=== PATIENT | female | born 1995 | race Caucasian/White ===

== ENCOUNTER → 2016-03-28 | Outpatient (CLI) | payer BC ==
[~2016-03-28] MED LIST: CATHETER FLUSH 10 ML SYR IV PRN; CLIN300C11 PO; CULTURELLE CAP1 EACH PO; DESO1TAB38 PO; ESCI10TA48 PO; ESCI5TAB PO; HYDR-3730 PO; HYDR-3812 PO; LACT1CAP8 PO; POLY17PO6 PO
--- OUTSIDE RECORDS SUMMARY | 2016-03-28 11:48 | XMS REPORT | Continuity of Care Document ---
Author Author [facility] Organization [facility] Address Unknown Phone Unavailable Care Team Providers Care Program Coordinator For Residence Life Name Role Phone PCP Unavailable Source Comments Some departments are not documenting in the electronic medical record. If you do not see the information that you expected, contact Release of Information in the Health Information Management department at [phone] for further assistance in locating additional records.[facility] Active Allergies and Adverse Reactions Not on File Current Medications Not on file Active Problems Not on file Social History Tobacco Use Types Packs/Day Years Used Date Never Assessed Plan of Care Date Type Specialty Providers Description 07/29/2016 Appointment Gastroenterology Maulik العلي MD [address] [facility] [address] [place] [address] [phone] (Fax) Results from Last 3 Months Not on file
--- NOTE | 2016-03-28 14:31 | Diagnostic Imaging Report ---
EXAMINATION: HIDA with EF measurements Indication: Abdominal pain TECHNIQUE: After the intravenous administration of 5.3 mCi of Tc 99m Choletec, imaging over the abdomen was obtained. This was followed by administration of Ensure orally to stimulate intrinsic CCK secretion, followed by continued imaging with ejection fraction measured. FINDINGS: There is homogeneous uptake in the liver with prompt bile duct and gallbladder filling seen. Bowel activity is seen at 15 minutes. Based on further imaging and gallbladder area of interest activity measurements after the administration of Ensure, the gallbladder ejection fraction is estimated at 44%. IMPRESSION: 1. Normal hepatobiliary uptake and Gallbladder filling. 2. Borderline gallbladder ejection fraction. Correlate clinically. Dictated by: Dictated on workstation # [id number]
== END ==
LOC: CARD 11:44
PROVIDERS: ATTEND Internal Medicine
DX: R10.11 Right upper quadrant pain (principal)
CPT/HCPCS: 78227

== ENCOUNTER 2016-03-29 11:35 | Outpatient (CLI) | payer BC ==
[~2016-03-29] VITALS: Ht 165.1 cm; Wt 67.7 kg
[~2016-03-29 11:35] MED LIST changes: -CATHETER FLUSH 10 ML SYR IV PRN; -CLIN300C11 PO; -HYDR-3812 PO; -LACT1CAP8 PO; -POLY17PO6 PO
--- OUTSIDE RECORDS SUMMARY | 2016-03-29 11:39 | XMS REPORT | Continuity of Care Document ---
Author Author [facility] Organization [facility] Address Unknown Phone Unavailable Care Team Providers Care Heel Reducer Name Role Phone PCP Unavailable Source Comments Some departments are not documenting in the electronic medical record. If you do not see the information that you expected, contact Release of Information in the Health Information Management department at [phone] for further assistance in locating additional records.[facility] Active Allergies and Adverse Reactions Not on File Current Medications Not on file Active Problems Not on file Social History Tobacco Use Types Packs/Day Years Used Date Never Assessed Plan of Care Date Type Specialty Providers Description 07/29/2016 Appointment Gastroenterology aMulik العلي MD [address] [facility] [address] [place] [address] [phone] (Fax) Results from Last 3 Months Not on file
[2016-03-29] MEDS ORDERED: POLY17PO6 PO (11:45)
[2016-03-29 11:46] VITALS: BP 111/65
[2016-03-29 12:20] LABS: BASOPHILS % (AUTO) 1 % (0-10); EOSINOPHILS # (AUTO) 0.1 10^3/uL (0.0-0.3); EOSINOPHILS % (AUTO) 2 % (0-10); LYMPHOCYTES # (AUTO) 1.8 X 10^3 (1.0-4.0); LYMPHOCYTES % (AUTO) 42 % (12-44); MEAN CORPUSCULAR HEMOGLOBIN 30 PG (25-34); MEAN CORPUSCULAR HGB CONC 34 G/DL (32-36); MEAN CORPUSCULAR VOLUME 88 FL (80-99); MEAN PLATELET VOLUME 9.3 FL (7.4-10.4); MONOCYTES # (AUTO) 0.3 X 10^3 (0.0-1.0); MONOCYTES % (AUTO) 7 % (0-12); NEUTROPHILS % (AUTO) 48 % (42-75); PLATELET COUNT 189 10^3/uL (130-400); RED BLOOD COUNT 4.23 10^6/uL (4.35-5.85); RED CELL DISTRIBUTION WIDTH 11.5 % (10.0-14.5); WHITE BLOOD COUNT 4.3 10^3/uL (4.3-11.0)
[2016-04-01] MEDS ORDERED: HYDR-3730 PO (15:25)
== END 2016-03-29 12:25 | disposition home or self-care (01) ==
LOC: PREOP 11:35
PROVIDERS: ATTEND Surgery Pediatric Surgery
DX: Z01.812 Encounter for preprocedural laboratory examination (principal); Z11.2 Encounter for screening for other bacterial diseases; K82.8 Other specified diseases of gallbladder
CPT/HCPCS: 36415; 85025; 87081

== ENCOUNTER 2016-04-01 11:37 | Day surgery (SDC) | payer BC ==
--- NOTE | 2016-03-30 11:06 | HISTORY AND PHYSICAL ---
DICTATING: Xiang Shepherd, SURVEILLANCE CAMERA TECHNICIAN DATE OF ADMISSION: ATTENDING PHYSICIAN: Dr. Rd Moore Ms. Lorri [id number] female who is known to us. She was initially seen in February 2012 for intermittent episodes of right lower quadrant pain as well as periumbilical pain. She had presented for a CAT scan where this did come back and showed a traditional small bowel bulls-eye target sign consistent with a small intussusception. She then went for a diagnostic laparoscopy where findings were a normal small bowel as well as normal colon. There was also a normal uterus and ovaries, as well as gallbladder and liver. There was however, a slight edema of the appendix, which was then removed. Since that time, the patient has done well. She reports however that approximately one week ago she did develop a sharp right upper quadrant abdominal pain and reports that this did radiate towards her back as well as right shoulder. She reports that she has had episodes of nausea associated with this as well as one episode of vomiting. She reports that she has also had increased episodes of reflux. She reports that Friday evening she felt rather warm and her face was flushed and felt that she was running a fever and reports that she did take some Tylenol. However, reports that this did seem to persist through Friday, but has not recurred since that time. Upon further questioning, she does report that, greasy and fried foods seem to make her right upper quadrant abdominal pain worse. She was seen by her primary care physician where a HIDA scan was performed which did come back as ejection fraction of 44% however, patient reports that she did have a severe reproduction of symptoms during administration of the Kinevac administration. PAST MEDICAL HISTORY: 1. Panic attack. 2. Anxiety. 3. IBS. 4. Gastroesophageal reflux disease. PAST SURGICAL HISTORY: 1. Left upper extremity ORIF x2 to 2011. 2. Diagnostic laparoscopy with laparoscopic appendectomy of February 2014. ALLERGIES: 1. AMOXICILLIN. 2. ZITHROMAX. 3. CEPHALEXIN. 4. BACTRIM. 5. TRIMOX, 6. PSEUDOEPHEDRINE. 7. MUCINEX. 8. SULFAMETHOXAZOLE. . MEDICATIONS: 1. Hydrocodone p.r.n. 2. MiraLAX daily. 3. Oral contraceptive pill a daily. SOCIAL HISTORY: Negative for smoke negative for alcohol. FAMILY HISTORY: Father, diabetes, hypertension. VITAL SIGNS: Stable. REVIEW OF SYSTEMS: This is a well-nourished female in no acute distress. She is not experiencing shortness of breath or difficulty breathing. No chest pain, palpitations, or diaphoresis. She does report intermittent episodes of nausea, as well as one episode of vomiting. She also reports sharp right upper quadrant abdominal pain. She also reports pain in her back as well as right shoulder. She also reports increased episodes of reflux. She reports that she did have a episodes of fever no chills. No recent inadvertent weight loss. She does report IBS and does have alternating episodes of diarrhea and constipation. No red blood per rectum. No dark tarry stools. PHYSICAL EXAM: CHEST: Chest clear. HEART: Heart regular. EXTREMITIES: No lower extremity edema. Negative Homans sign. HEENT: No scleral icterus. No cervical adenopathy or. ABDOMENS: Abdomen is soft and nondistended. There is pain elicited with a moderate palpation in the right upper abdominal quadrant. ASSESSMENT AND PLAN: A 20-year-old female with a symptomatic biliary dyskinesia. She did have a HIDA scan with an ejection fraction of 44%, however, she had a severe reproduction of symptoms during and later that day after the test. At this time due to her symptoms and findings from the HIDA scan. We will proceed with a laparoscopic cholecystectomy. The risk and benefits of the procedure as well as the procedure and home care instructions were explained to the patient. The patient verbalized understanding of instructions and agrees to proceed as planned. At this, time we will proceed with scheduling patient for a laparoscopic cholecystectomy. Job ID: [id number] Dictated Date: 03/29/2016 12:04:20 Manager Gaming Date: 03/30/2016 10:48:51/gemma
[~2016-04-01] VITALS: Ht 165.1 cm; Wt 67.7 kg
[~2016-04-01 11:37] MED LIST changes: +POLY17PO6 PO
--- OUTSIDE RECORDS SUMMARY | 2016-04-01 11:40 | XMS REPORT | Continuity of Care Document ---
Author Author [facility] Organization [facility] Address Unknown Phone Unavailable Care Team Providers Care Expediter Service Order Name Role Phone PCP Unavailable Source Comments Some departments are not documenting in the electronic medical record. If you do not see the information that you expected, contact Release of Information in the Health Information Management department at [phone] for further assistance in locating additional records.[facility] Active Allergies and Adverse Reactions Not on File Current Medications Not on file Active Problems Not on file Social History Tobacco Use Types Packs/Day Years Used Date Never Assessed Plan of Care Date Type Specialty Providers Description 07/29/2016 Appointment Gastroenterology Maulik العلي MD [address] [facility] [address] [place] [address] [phone] (Fax) Results from Last 3 Months Not on file
--- OUTSIDE RECORDS SUMMARY | 2016-04-01 11:40 | XMS REPORT | Continuity of Care Document ---
Author Author [facility] Organization [facility] Address Unknown Phone Unavailable Care Team Providers Care Staff Nuclear Weapons Officer Name Role Phone PCP Unavailable Source Comments Some departments are not documenting in the electronic medical record. If you do not see the information that you expected, contact Release of Information in the Health Information Management department at [phone] for further assistance in locating additional records.[facility] Active Allergies and Adverse Reactions Not on File Current Medications Not on file Active Problems Not on file Social History Tobacco Use Types Packs/Day Years Used Date Never Assessed Plan of Care Date Type Specialty Providers Description 07/29/2016 Appointment Gastroenterology Maulik العلي MD [address] [facility] [address] [place] [address] [phone] (Fax) Results from Last 3 Months Not on file
[2016-04-01] MEDS ORDERED: CATHETER FLUSH 10 ML SYR IV PRN (11:45)
[2016-04-01] MEDS ORDERED: LEVOFLOXACIN 500 MG/D5W 100 ML (PRE-MIX) IV ONE (11:45)
[2016-04-01] MEDS ORDERED: HYDR-3812 PO (12:10)
[2016-04-01] MEDS ORDERED: LIDOCAINE PF 2% 10 ML (XYLOCAINE) AMP ONE (12:44)
[2016-04-01] MEDS ORDERED: SEVOFLURANE (ULTANE) 15 ML INHAL SOLN ONE ×3 (12:44→15:23)
[2016-04-01] MEDS ORDERED: proPOfol 200 MG/20 ML (DIPRIVAN) VIAL IV ONE (12:44)
[2016-04-01] MEDS ORDERED: LACTATED RINGERS 1,000 ML IV ONE ×2 (12:44→15:23)
[2016-04-01] MEDS ORDERED: ONDANSETRON 4 MG/2 ML (SDV) Z0FRAN ONE ×2 (12:44→15:43)
[2016-04-01] MEDS ORDERED: DEXAMETHASONE PF 10 MG/ML (DECADRON) VIAL ONE (12:44)
[2016-04-01] MEDS ORDERED: ROCURONIUM 50 MG/5 ML (ZEMURON) VIAL IV ONE (12:44)
[2016-04-01] MEDS ORDERED: fentaNYL INJECTION 100 MCG/2 ML AMP ONE ×2 (12:45→15:20)
[2016-04-01] MEDS ORDERED: MIDAZOLAM 2 MG/2 ML (VERSED) VIAL ONE (12:45)
--- NOTE | 2016-04-01 13:36 | Progress Note-Pre Operative ---
Pre-Operative Progress Note H&P Reviewed The H&P was reviewed, patient examined and no changes noted. Date H&P Reviewed: Apr 01, 2016 Time H&P Reviewed: 13:33 Pre-Operative Diagnosis: symptomatic biliary dyskinesia OJ RODRIGUEZ MD Apr 01, 2016 1:36 pm
[2016-04-01] MEDS ORDERED: ONDANSETRON 4 MG/2 ML (SDV) Z0FRAN IVP PRN ×2 (13:45→16:00)
[2016-04-01] MEDS ORDERED: ACETAMINOPHEN 325 MG TABLET/CAPLET (TYLENOL) PO PRN (13:45)
[2016-04-01] MEDS ORDERED: HYDROcodone/APAP 5 MG/325 MG (LORTAB) TAB PO ONE (13:45)
[2016-04-01] MEDS ORDERED: morphine INJ 10 MG/ML 1ML (SYR OR VIAL) IVP PRN (13:45)
[2016-04-01] MEDS: LACTATED RINGERS 1,000 ML IV PRN ×2 (13:49→14:52)
[2016-04-01] MEDS ORDERED: MIDAZOLAM 2 MG/2 ML (VERSED) VIAL IV ONE (14:00)
[2016-04-01] MEDS ORDERED: BUP/EPI 0.5% 1:200,000 (SENSORCAINE) 30 ML VIAL ONE (14:04)
[2016-04-01] MEDS ORDERED: NEOSTIGMINE (BLOXIVERZ ) 1 MG/1ML 10 ML VIAL ONE (15:19)
[2016-04-01] MEDS ORDERED: GLYCOPYRROLATE 0.2 MG/ML (ROBINUL) 2 ML VIAL ONE (15:19)
--- NOTE | 2016-04-01 15:23 | Progress Note-Post Operative ---
Post-Operative Progess Note Manager Pipeline jose luis diaz TURBINE MEASUREMENTS ENGINEER Pre-Operative Diagnosis symptomatic biliary dyskinesia Post-Operative Diagnosis same Post-Op Procedure Note Date of Procedure: Apr 01, 2016 Name of Procedure: laparoscopic cholecystectomy Anesthesia Type GET Estimated blood loss (mL): minimal Specimen(s) collected gallbladder OJ RODRIGUEZ MD Apr 01, 2016 3:23 pm
[2016-04-01] MEDS ORDERED: HYDR-3730 PO (15:25)
--- NOTE | 2016-04-01 15:26 | Discharge Inst-Surgical ---
D/C Lap Instructions-JENNIFER New, Converted, or Re-Newed RX: RX on Chart Follow Up Appt in 2 weeks Activity as tolerated No driving for 24 hours No driving while on pain medications Incentive Spirometry use every 2 hours while awake Regular Diet Symptoms to Report: Fever over 101 degree F, Nausea/Vomiting Infection Signs and Symptoms to report: Increased redness, Foul odor of wound, Increased drainage Bathing instructions: May shower Operative Area Clean/Dry; Keep incision clean/dry If any problems/questions: Contact your physician or go to Emergency Room OJ RODRIGUEZ MD Apr 01, 2016 3:26 pm
[2016-04-01] MEDS ORDERED: morphine INJ 10 MG/ML 1ML (SYR OR VIAL) ONE (15:43)
[2016-04-01] MEDS: morphine INJ 10 MG/ML 1ML (SYR OR VIAL) IVP PRN ×2 (15:50→15:58)
[2016-04-01] MEDS ORDERED: HYDROmorphone (DILAUDID) 2 MG/ML VIAL ONE (16:09)
[2016-04-01] MEDS ORDERED: HYDROmorphone (DILAUDID) 2 MG/ML VIAL IVP PRN (16:15)
[2016-04-01] MEDS ORDERED: HYDROcodone/APAP 7.5 MG/325 MG (LORTAB, LORCET PLUS) TABLET PO ONE (17:13)
--- NOTE | 2016-04-02 11:42 | OPERATIVE REPORT ---
PROCEDURE PHYSICIAN: OJ LILLY DATE OF PROCEDURE: 04/01/2016 ATTENDING PRIMARY CARE PHYSICIAN: Dr. Rd Moore. PREOPERATIVE DIAGNOSIS: Symptomatic biliary dyskinesia. POSTOPERATIVE DIAGNOSIS: Symptomatic biliary dyskinesia. PROCEDURE: Laparoscopic cholecystectomy. SURGEON: Dr. Lilly. ASSOCIATE PROFESSOR OF MUSIC: Xiang Shepherd APRN. ANESTHESIA: General endotracheal. ESTIMATED BLOOD LOSS: Minimal. FINDINGS: Grossly normal-appearing gallbladder. liver, small bowel, omentum, and stomach. DISPOSITION: The patient tolerated the procedure well. Ms. Lorri Courtney is a 20-year-old female known to us. She was initially seen in February 2012 for intermittent episodes of right upper abdominal quadrant pain, as well as periumbilical pain. She had a CT scan performed, which did show a bulls eye target consistent with a traditional small bowel intussusception. She underwent a diagnostic laparoscopy; however, there was no intussusception noted as well as small bowel and normal colon. There was also normal uterus, ovaries, gallbladder and liver identified. There was slight edema of the appendix and she did undergo an appendectomy at the time. She reports that she has had worsening episodes of right upper abdominal quadrant pain with radiation towards the back and right shoulder. She reports that this usually follows after a meal. She reports that she is also felt some low-grade temperatures as well. She reports that she did have a relatively, greasy meal including Burger and fries which may her symptoms significantly worse. She did have a HIDA scan performed which did show an ejection fraction of 44%. However, the administration of Kinevac analog she reports having severe reproduction of symptoms consistent with a biliary dyskinesia. PROCEDURE: The patient was brought to the operating room, laid supine on the table. After adequate IV pain and sedative medications and general endotracheal intubation the abdomen was prepped and draped in standard surgical fashion. 0.5% Marcaine with epinephrine was then used to anesthetize the overlying skin. In the left upper abdominal quadrant a small transverse skin incision made using a 15 blade. An 0 silk suture was applied to the medial aspect of the incision for retraction. A Veress needle inserted with low pressures 0 mmHg and the abdomen was insufflated to 15 mmHg pressure. The Veress needle removed and a 5 mm Xcel trocar placed followed by a 5 mm, 45 degrees angle laparoscope, visualizing the peritoneal cavity. A four-quadrant abdominal exploration was then performed. What was visualized of the stomach, liver, omentum, small bowel, colon, appeared normal. The only slight anatomic abnormality, there was omental adhesions to the gallbladder which that may indicate chronic inflammatory process. Under direct visualization we then proceeded to place a supraumbilical 10 mm port after the skin and peritoneum were anesthetized using 0.5% Marcaine with epinephrine and a transverse skin incision made using a 15 blade. In a similar manner, a right upper abdominal quadrant, 5 mm port was placed. The patient was then placed in reverse Trendelenburg position as well as planed right side up, left side down. The fundus of the gallbladder was then retracted anteriorly and superiorly. The omental adhesions were then taken down using electrocautery on the hook instrument. The hepatoduodenal ligament was then identified and the entire critical view of safety was identified and dissected out using a hook instrument with blunt dissection and electrocautery. This including the triangle of Calot, the cystic duct and artery going into the gallbladder, as well as liver behind the proximal gallbladder. A timeout was then taken and the cystic duct and artery were then clipped proximally and distally and cut with Endo Mikal. The gallbladder was then dissected off the liver bed using electrocautery on a hook instrument with visualization of good hemostasis, as well as no leaking ducts of Luschka. The gallbladder was removed through the 10 mm port site using an Endo Catch bag. The 10 mm port site, fascia and peritoneum were then closed under direct visualization using a Yann-Sajan device and an 0 Vicryl suture. The abdomen was desufflated and the remaining ports removed. All skin incisions were closed using 4-0 Monocryl running subcuticular sutures. Wounds were then cleaned and covered with Dermabond. The patient tolerated the procedure well. We will start IV and oral pain medication as well as clear liquid diet. Once she is tolerating clears, has good pain control with oral pain medications and ambulating well, we will discharge her home. Job ID: [id number] Dictated Date: 04/01/2016 15:31:59 Retort Furnace Operator Date: 04/02/2016 11:34:23 / gemma MELTON
== END 2016-04-01 18:00 | disposition home or self-care (01) ==
LOC: SDC 11:37
PROVIDERS: ATTEND Surgery Pediatric Surgery
DX: K82.8 Other specified diseases of gallbladder (principal)
CPT/HCPCS: 84703; 88304; 94664

== ENCOUNTER 2016-05-03 18:20 | Emergency (ER) | payer BC ==
[~2016-05-03] VITALS: Ht 165.1 cm; Wt 66.2 kg
[~2016-05-03 18:20] MED LIST changes: +HYDR-3812 PO
--- OUTSIDE RECORDS SUMMARY | 2016-05-03 18:27 | XMS REPORT | Continuity of Care Document ---
Author Author [facility] Organization [facility] Address Unknown Phone Unavailable Care Team Providers Care Folder Gluer Operator Name Role Phone PCP Unavailable Source Comments Some departments are not documenting in the electronic medical record. If you do not see the information that you expected, contact Release of Information in the Health Information Management department at [phone] for further assistance in locating additional records.[facility] Active Allergies and Adverse Reactions Not on File Current Medications Not on file Active Problems Not on file Social History Tobacco Use Types Packs/Day Years Used Date Never Assessed Plan of Care Date Type Specialty Providers Description 07/29/2016 Appointment Gastroenterology Maulik العلي MD [address] [facility] [address] [place] [address] [phone] (Fax) Results from Last 3 Months Not on file
[2016-05-03] MEDS ORDERED: RABIES IMMUNE GLOBULIN 150 UNIT/ML 10 ML (HYPERRAB) IM ONE (18:45)
[2016-05-03] MEDS ORDERED: RABIES VACCINE HUMAN DIPL CELL 1 ML/2.5 UNITS SYR IM ONE (18:45)
[2016-05-03] MEDS ORDERED: TETANUS,DIPTH,PERTUSS P/F (BOOSTRIX) 0.5 ML VIAL IM ONE (18:45)
[2016-05-03] MEDS ORDERED: LACT1CAP8 PO (18:53)
[2016-05-03] MEDS ORDERED: CLIN300C11 PO (18:53)
[2016-05-03] MEDS ORDERED: RX-CLINDAMYCIN 150 MG (CLEOCIN) CAP PPK#4 PO STA (18:53)
[2016-05-03] MEDS ORDERED: RX-MUPIROCIN (BACTROBAN) 2% OINT 22 GM TUBE TOP STA (18:53)
--- NOTE | 2016-05-03 18:54 | ED Integumentary General ---
General Chief Complaint: Bite-Animal/Human/Insect Stated Complaint: DOG BITE R ARM AND R LEG Nursing Triage Note: PT BIT BY UNKNOWN DOG WHILE WALKING, HAS FANG REINALDO ON R UPPER THIGH AND R WRIST AREA, CLEANED W NS AND BETASEPT. PPD CALLED TO COME TO ED BY PARENT Source: patient, family (MOM) History of Present Illness Time seen by provider: 18:39 Initial Comments PT WAS WALKING DOWN THE STREET WITH A SMALL CHILD AND AN UNKNOWN DOG CAME UP AND WAS TRYING TO ATTACK THE CHILD PT STATES SHE WAS ABLE TO KEEP THE CHILD AWAY FROM THE DOG, BUT THE DOG BIT HER RIGHT UPPER THIGH AND HER RIGHT DISTAL FOREARM OCCURRED AT 1800 [place] POLICE ARE HERE SHORTLY AFTER PT'S ARRIVAL TO ER--DOG IS UNKNOWN AND IS STILL AT LARGE. NO OTHER INJURIES NO PARESTHESIAS OR MOTOR DEFICITS NO ACTIVE BLEEDING PCP: Allergies and Home Medications Allergies Coded Allergies: amoxicillin (Verified Allergy, Severe, RASH, 02/09/16) sulfamethoxazole (Verified Allergy, Intermediate, VOMITING, 02/09/16) trimethoprim (Verified Allergy, Intermediate, VOMITING, 02/09/16) cefuroxime (Verified Allergy, Mild, 02/09/16) cephalexin (Unverified Allergy, Mild, 08/30/08) azithromycin (Verified Allergy, Unknown, HIVES, 02/07/16) guaifenesin (Verified Allergy, Unknown, HIVES, 02/07/16) Home Medications Clindamycin HCl 300 Mg Capsule #40 300 MG PO QID Prescribed by: GREGORIO CONTE on 05/03/161852 Desogestrel-Ethinyl Estradiol 1 Each Tablet 1 TAB PO HS (Reported) KARIVA 0.15-0.02/0.01MG (07/07) Lactobacillus Acidophilus 1 Each Capsule #80 2 EACH PO QID Prescribed by: GREGORIO CONTE on 05/03/161852 Constitutional: no symptoms reported EENTM: no symptoms reported Respiratory: no symptoms reported Cardiovascular: no symptoms reported Gastrointestinal: no symptoms reported Genitourinary: no symptoms reported Musculoskeletal: see HPI Skin: see HPI Psychiatric/Neurological: No Symptoms Reported Endocrine: No Symptoms Reported Hematologic/Lymphatic: No Symptoms Reported Past Qjoottr-Dhreyv-Jouosd Hx Patient Social History Alcohol Use: Denies Use Recreational Drug Use: No Smoking Status: Never a Smoker Recent Foreign Travel: No Contact w/Someone Who Travel: No Recent Infectious Disease Expo: No Recent Hopitalizations: No Immunizations Up To Date Tetanus Booster (TDap): Unknown Date of Influenza Vaccine: Dec 08, 2015 Seasonal Allergies Seasonal Allergies: No Surgeries HX Surgeries: Yes (ARM FX x2/ORIF X 2, THEN PLATES REMOVED) Surgeries: Gallbladder, Orthopedic Respiratory Hx Respiratory Disorders: No Cardiovascular Hx Cardiac Disorders: No Neurological Hx Neurological Disorders: No Reproductive System Hx Reproductive Disorders: No Sexually Transmitted Disease: No HIV/AIDS: No Female Reproductive Disorders: Denies Genitourinary Hx Genitourinary Disorders: No Gastrointestinal Hx Gastrointestinal Disorders: Yes (BEEN SICK ON AND OFF FOR 2 YRS WITH GI PROBLEMS) Gastrointestinal Disorders: Gastroesophageal Reflux, Gall Bladder Disease, Irritable Bowel Musculoskeletal Hx Musculoskeletal Disorders: No Endocrine Hx Endocrine Disorders: No HEENT HX ENT Disorders: Yes (GLASSES) Loss of Vision: Bilateral Hearing Impairment: Denies Cancer Hx Cancer: No Psychosocial Hx Psychiatric Problems: Yes Behavioral Health Disorders: Anxiety Integumentary HX Skin/Integumentary Disorder: No Blood Transfusions Hx Blood Disorders: No Adverse Reaction to a Blood Tr: No (N/A) Physical Exam Vital Signs Vital Sign - Last 12Hours 05/03/16 18:25 Temp 97.9 Pulse 102 Resp 20 B/P 123/78 Pulse Ox 100 Capillary Refill : Less Than 3 Seconds General Appearance: WD/WN no apparent distress HEENT: PERRL/EOMI Neck: normal inspection Cardiovascular: normal peripheral pulses regular rate, rhythm Respiratory: normal breath sounds Gastrointestinal: soft Back: normal inspection Extremities: other (RIGHT DISTAL FOREARM WITH 2 PUNCTURE WOUNDS, AND RIGHT UPPER ANTERIOR THIGH WITH 2 PUNCTURE WOUNDS. NO BLEEDING. SLIGHT BRUISING AROUND THE BITE SITES. MOTOR/SENSORY/VASCULAR INTACT) Neurologic/Psychiatric: underwriter mortgage loan II-XII nml as tested no motor/sensory deficits alert normal mood/affect oriented x 3 Skin: normal color warm/dry other ( ABOVE) Progress/Results/Core Measures Results/Orders My Orders Orders-GREGORIO CONTE Pertuss(Acell),Tet Adult (Boostrix (05/03/16 18:45) Rabies Immune Globulin/Pf Inj (Hyperrab (05/03/16 18:45) Rabies Vaccine Human Dipl Cell (Rabavert (05/03/16 18:45) Rx-Mupirocin 2% Oint (Rx-Bactroban) (05/03/16 18:53) Rx-Clindamycin Capsule (Rx-Cleocin Capsu (05/03/16 18:53) Ibuprofen Tablet (Motrin Tablet) (05/03/16 19:45) Medications Given in ED Current Medications Medications Dose Ordered Sig/Julian Route Start Time Stop Time Status Last Admin Dose Admin Diphtheria/ Tetanus/Acell Pertussis 0.5 ml ONCE ONCE IM 05/03/16 18:45 05/03/16 18:46 DC 05/03/16 19:20 0.5 ML Rabies Immune Globulin 20 UNITS/KG ONCE ONCE IM 05/03/16 18:45 05/03/16 18:53 DC 05/03/16 19:10 150 UNIT Rabies Vaccine Human Diploid Cell 1 ml ONCE ONCE IM 05/03/16 18:45 05/03/16 18:46 DC 05/03/16 19:07 1 ML Vital Signs/I&O Vital Sign - Last 12Hours 05/03/16 18:25 Temp 97.9 Pulse 102 Resp 20 B/P 123/78 Pulse Ox 100 Blood Pressure Mean: 93 Progress Note : Progress Note RABIES IMMUNE GLOBULIN AND VACCINE ADMINISTERED, WELL TETANUS VACCINATION Departure Impression Impression: Primary Impression: Dog bite Additional Impressions: Zbkrmzpjpq-pcyhyivbq-hurjeeb (DPT) vaccination administered at current visit Need for prophylactic vaccination against rabies Disposition: HOME, SELF-CARE Condition: Stable Departure-Patient Inst. Referrals: REINALDO GUY MD (PCP/Family) Primary Care Physician Patient Instructions: Animal Bites (DC), Diphtheria and Tetanus Toxoids, and Acellular Pertussis Vaccine, Rabies (DC), Rabies Immune Globulin (Human), Rabies Vaccine Add. Discharge Instructions: CLEAN WOUNDS 2-3 TIMES A DAY WITH ANTIBACTERIAL SOAP AND WATER, APPLY ANTIBIOTIC OINTMENT AND FRESH DRESSING AFTER EACH CLEANING TYLENOL AND MOTRIN NEEDED FOR PAIN ICE TO AREA AT 20 MINUTE INTERVALS RETURN TO OUTPATIENT DEPT INSTRUCTED FOR RABIES VACCINE SERIES FOLLOW UP WITH DR. GUY ON FRIDAY FOR FURTHER CARE, RETURN TO ER IF WORSE All discharge instructions reviewed with patient and/or family. Voiced understanding. Scripts Lactobacillus Acidophilus (Acidophilus)1 Each Capsule2 Each PO QID #80 CAP Prov:GREGORIO CONTE DO 05/03/16 Clindamycin HCl 300 Mg [id number] Mg PO QID FOR INFECTION #40 CAP Prov:GREGORIO CONTE DO 05/03/16 Images Full Body/Extremities Full Progress SEE ADDITIONAL PAPER DIAGRAMS FOR IMAGES GREGORIO CONTE DO May 03, 2016 18:54
[2016-05-03 19:44] VITALS: BP 0/0
[2016-05-03] MEDS ORDERED: IBUPROFEN 800 MG (MOTRIN) TAB PO ONE (19:45)
== END 2016-05-03 19:44 | disposition home or self-care (01) ==
LOC: EDUNIT# 18:20 → ER 18:21
DX: S61.551A Open bite of right wrist, initial encounter (principal); S71.151A Open bite, right thigh, initial encounter; Z23 Encounter for immunization; W54.0XXA Bitten by dog, initial encounter; Y92.480 Sidewalk as the place of occurrence of the external cause; Y99.8 Other external cause status
CPT/HCPCS: 90376; 90471; 90675; 90715; 96372; 99283

== ENCOUNTER 2016-05-31 13:42 | Outpatient (RCR) | payer BC ==
--- OUTSIDE RECORDS SUMMARY | 2016-05-06 10:04 | XMS REPORT | Continuity of Care Document ---
Author Author [facility] Organization [facility] Address Unknown Phone Unavailable Care Team Providers Care Tenderizer Tender Name Role Phone PCP Unavailable Source Comments Some departments are not documenting in the electronic medical record. If you do not see the information that you expected, contact Release of Information in the Health Information Management department at [phone] for further assistance in locating additional records.[facility] Active Allergies and Adverse Reactions Not on File Current Medications Not on file Active Problems Not on file Social History Tobacco Use Types Packs/Day Years Used Date Never Assessed Plan of Care Date Type Specialty Providers Description 07/29/2016 Appointment Gastroenterology Maulik العلي MD [address] [facility] [address] [place] [address] [phone] (Fax) Results from Last 3 Months Not on file
[2016-05-06 10:54] VITALS: BP 105/78
[2016-05-10 11:40] VITALS: BP 114/68
[2016-05-17 11:38] VITALS: BP 110/72
[~2016-05-31] VITALS: Ht 165.1 cm; Wt 66.4 kg
[~2016-05-31 13:42] MED LIST changes: +CLIN300C11 PO; +LACT1CAP8 PO; +RABIES VACCINE HUMAN DIPL CELL 1 ML/2.5 UNITS SYR INJ ONE; +RABIES VACCINE HUMAN DIPL CELL 1 ML/2.5 UNITS SYR ONE
[2016-05-31 13:50] VITALS: BP 103/70
[2016-06-02] MEDS ORDERED: RABIES VACCINE HUMAN DIPL CELL 1 ML/2.5 UNITS SYR INJ ONE ×2 (10:15→11:00)
== END 2016-08-04 | disposition home or self-care (01) ==
LOC: SDC 13:42
PROVIDERS: ATTEND Emergency Medicine
DX: Z23 Encounter for immunization (principal)
CPT/HCPCS: 90675; 96372

== ENCOUNTER → 2017-03-05 | Outpatient (CLI) | payer BC ==
[~2017-03-05] MED LIST changes: +ACHD5005 PO; -HYDR-3812 PO; -RABIES VACCINE HUMAN DIPL CELL 1 ML/2.5 UNITS SYR INJ ONE; -RABIES VACCINE HUMAN DIPL CELL 1 ML/2.5 UNITS SYR ONE
--- NOTE | 2017-03-05 13:42 | Diagnostic Imaging Report ---
INDICATION: Right sided abdominal pain. TIME OF EXAM: 12:07 PM. FINDINGS: No free air is identified. There are surgical clips in the gallbladder fossa. The bowel gas pattern is nonobstructive. Moderate stool in the right colon is noted. No pathologic calcifications are seen. IMPRESSION: No acute cardiopulmonary process is detected. Dictated by: Dictated on workstation # [id number]
== END ==
LOC: RAD 11:44
PROVIDERS: ATTEND Internal Medicine
DX: K59.00 Constipation, unspecified (principal); R10.9 Unspecified abdominal pain; Z98.890 Other specified postprocedural states
CPT/HCPCS: 74019

== ENCOUNTER → 2019-07-15 | Outpatient (CLI) | payer BC ==
--- NOTE | 2019-07-15 14:24 | Diagnostic Imaging Report ---
INDICATION: Lump to the right of the umbilicus. Sonographic interrogation of the area of lump to the right of umbilicus was performed. No sonographic abnormality is seen. No abdominal wall defect or evidence of hernia is seen. No solid or cystic masses detected. IMPRESSION: No sonographic abnormality is detected. Dictated by: Dictated on workstation # [id number]
== END ==
LOC: RAD 12:34
PROVIDERS: ATTEND Internal Medicine
DX: R19.09 Other intra-abdominal and pelvic swelling, mass and lump (principal)
CPT/HCPCS: 76999

== ENCOUNTER → 2019-12-30 | Outpatient (CLI) | payer BC | LOC: LABNPT 08:12 | PROVIDERS: ATTEND Internal Medicine | DX: Z01.812 Encounter for preprocedural laboratory examination (principal); Z20.828 Contact with and (suspected) exposure to other viral communicable diseases | CPT/HCPCS: 87635 ==

== ENCOUNTER → 2022-07-16 | Outpatient (CLI) | payer BC ==
[~2022-07-16] MED LIST changes: +CLIN-144 PO; -CLIN300C11 PO
--- NOTE | 2022-07-16 17:01 | Diagnostic Imaging Report ---
INDICATION: Fall, pain. EXAMINATION: Left elbow, 07/16/2022. FINDINGS: Two views of the elbow. There is no significant joint effusion. No fractures or dislocations. IMPRESSION: Negative elbow. Dictated by: Dictated on workstation # [id number]
--- NOTE | 2022-07-16 17:03 | Diagnostic Imaging Report ---
FOREARM, LEFT, 2 VIEWS INDICATION: Left arm pain after fall. COMPARISON: 11/06/2015. TECHNIQUE: Two views of the left forearm. FINDINGS: There are lucent tracts in the mid to distal radial and ulnar shafts from prior hardware that has been removed. No acute fracture has developed. The wrist and elbow are normal in alignment. IMPRESSION: No acute fracture within the left forearm. Dictated by: Dictated on workstation # [id number]
== END ==
LOC: RAD 16:41
PROVIDERS: ATTEND Nurse Practitioner Family
DX: M79.602 Pain in left arm (principal); M25.522 Pain in left elbow
CPT/HCPCS: 73070; 73090

== ENCOUNTER 2022-12-29 01:34 | Emergency (ER) | payer BC ==
[~2022-12-29] VITALS: Ht 165.1 cm; Wt 80.7 kg
[2022-12-29] MEDS ORDERED: oxyCODONE/ACETAMINOPHEN 5/325MG TABLET PO ONE ×2 (02:30→04:45)
[2022-12-29] MEDS ORDERED: ALPRAZolam 0.25 MG TABLET PO ONE (02:30)
[2022-12-29] MEDS ORDERED: ONDANSETRON 4 MG ORAL DISSOLVE TABLET SL ONE (02:30)
[2022-12-29] MEDS ORDERED: morphine INJ 4 MG/ML 1 ML (VIAL/SYRINGE) IVP ONE (03:30)
[2022-12-29] MEDS ORDERED: fentaNYL INJECTION 100 MCG/2 ML VIAL IVP ONE (03:30)
[2022-12-29] MEDS ORDERED: ETOMIDATE INJ SOLN 20 MG/10 ML VIAL IV ONE (03:30)
[2022-12-29] MEDS ORDERED: OXYC1TAB87 PO (04:57)
--- NOTE | 2022-12-29 04:58 | ED Upper Extremity ---
General Chief Complaint: Upper Extremity Stated Complaint: SLIP & FALL,LEFT ARM PX Source: patient, family Exam Limitations: no limitations History of Present Illness Date Seen by Provider: Dec 29, 2022 Time Seen by Provider: 02:21 Initial Comments This 27-year-old young lady presents to the emergency room by private vehicle accompanied by her mother with a left wrist injury. She fell on some stairs when someone excellently stepped on the back of her shoe. She fell on her left outstretched hand. She now has pain, swelling, and deformity of the distal left forearm. She has had prior fractures to this forearm. She took a hydrocodone at 2029 but is still in significant pain. She denies any other injury. Allergies and Home Medications Allergies Coded Allergies: amoxicillin (Verified Allergy, Severe, RASH, 02/09/16) sulfamethoxazole (Verified Allergy, Intermediate, VOMITING, 02/09/16) trimethoprim (Verified Allergy, Intermediate, VOMITING, 02/09/16) cefuroxime (Verified Allergy, Mild, 02/09/16) cephalexin (Unverified Allergy, Mild, 08/30/08) azithromycin (Verified Allergy, Unknown, HIVES, 02/07/16) guaifenesin (Verified Allergy, Unknown, HIVES, 02/07/16) Patient Home Medication List Home Medication List Reviewed: Yes Clindamycin HCl (Clindamycin HCl) 300 Mg Capsule, 300 MG PO QID Prescribed by: GREGORIO CONTE on 05/03/161852 Desogestrel-Ethinyl Estradiol (Desogestrel-Ethinyl Estradiol) 1 Each Tablet, 1 TAB PO HS, (Reported) Entered as Reported by: LINK REED on 03/10/141852 Lactobacillus Acidophilus (Acidophilus) 1 Each Capsule, 2 EACH PO QID Prescribed by: GREGORIO CONTE on 05/03/161852 Oxycodone HCl/Acetaminophen (Percocet 5-325 mg Tablet) 1 Each Tablet, 1 TAB PO Q4H PRN for PAIN-MODERATE TO SEVERE Prescribed by: JOANN MORENO on 12/29/22 0458 Review of Systems Constitutional: no symptoms reported EENTM: no symptoms reported Respiratory: no symptoms reported Cardiovascular: no symptoms reported Gastrointestinal: no symptoms reported Genitourinary: no symptoms reported : No LMP: Dec 22, 2022 Musculoskeletal: see HPI Skin: no symptoms reported Psychiatric/Neurological: No Symptoms Reported Past Ijjnnws-Zxjzfv-Okxema Hx Immunizations Up To Date Tetanus Booster (TDap): Unknown Seasonal Allergies Seasonal Allergies: No Past Medical History Surgeries: Yes Abdominal (exploritory lab), Appendectomy, Gallbladder, Orthopedic (left forearm plates placed and removed) Cardiac: No Neurological: No : No Reproductive Disorders: No Female Reproductive Disorders: Denies Sexually Transmitted Disease: No HIV/AIDS: No Gastrointestinal: Yes Gastroesophageal Reflux, Gall Bladder Disease, Irritable Bowel Musculoskeletal: Yes Fractures (ORIF left forearm) HEENT: No Loss of Vision: Bilateral Hearing Impairment: Denies Cancer: No Anxiety Adverse Reaction/Blood Tranf: No (N/A) Physical Exam Vital Signs Vital Signs - First Documented 12/29/22 01:45 Temp 36.6 Pulse 95 Resp 16 B/P (MAP) 163/76 (105) Pulse Ox 100 O2 Delivery Room Air Capillary Refill : Height, Weight, BMI Height: 5'5.00" Weight: 146lbs. 5.0oz. 66.923217wa; 24.4 BMI Method:Stated General Appearance: WD/WN, mild distress HEENT: normal ENT inspection, pharynx normal Neck: normal inspection Cardiovascular: regular rate, rhythm, no edema, no murmur Respiratory: lungs clear, normal breath sounds, no respiratory distress Shoulder: normal inspection, non-tender, no evidence of injury Elbow/Forearm: Left, bone tenderness, deformity, limited ROM, pain, swelling Wrist: Yes bone tenderness, Yes deformity, Yes limited ROM, Yes pain, Yes swelling Hand: normal inspection, non-tender, no evidence of injury, normal ROM, Left Neurologic/Tendon: normal sensation, normal motor functions, normal tendon functions Neurologic/Psychiatric: no motor/sensory deficits, alert, normal mood/affect, oriented x 3 Skin: normal color, warm/dry Procedures/Interventions Patient Education: Explained Benefits Agreement on procedure with pt: Yes Breath Sounds per Auscultation: Clear Heart Sounds per Auscultation: Regular Airway Exam: Mouth opens >2 fingers, Neck Full Range of Motion, Visulation of Uvula Moderate sedation was performed with etomidate 10 mg and fentanyl 75 mcg IV. There was satisfactory sedation. The procedure was performed in the presence of respiratory therapy. There was satisfactory reduction confirmed by post reduction x-rays and a sugar-tong splint was applied. She was neurovascularly intact postprocedure. Splinting and Joint Reduction : Pre-Proc Neuro Vasc Exam: normal Post-Proc Neuro Vasc Exam: normal Pre-Procedure NV Exam: Yes Progress Reduction of fracture performed by this provider with satisfactory post reduction films reviewed. Sugar tong splint applied. Sling applied. Arm Sling: Large Hand-Made Type: fiberglass Splint Application: Short Arm (sugar tong) Progress/Results/Core Measures Results/Orders My Orders Orders - JOANN MOURA MD Ondansetron Oral Dissolve Tab (Ondanset (12/29/22 02:30) Oxycodone/Apap 5/325mg Tablet (Oxycodon (12/29/22 02:30) Alprazolam Tablet (Alprazolam Tablet) (12/29/22 02:30) Wrist, Left, 3 Views Or More (12/29/22 02:29) Etomidate Injection (Etomidate Injection (12/29/22 03:30) Morphine Injection (Morphine Injection (12/29/22 03:30) Fentanyl Injection (Fentanyl Injection (12/29/22 03:30) Wrist, Left, 2 Views (12/29/22 03:41) Oxycodone/Apap 5/325mg Tablet (Oxycodon (12/29/22 04:45) Medications Given in ED Progress Progress Note : Progress Note Pain was initially treated with Percocet. Anxiety treated with Xanax. Nausea treated with Zofran. X-rays revealed a displaced and angulated fracture of the distal radius. Ulnar styloid deformity appears chronic when compared with priors. Radiologist's report was not yet available at the time of my interpretation. Options discussed with patient. She elects to proceed with closed reduction and splinting under moderate sedation. Risks and benefits were reviewed and consent signed. She underwent sedation with fentanyl and etomidate. She tolerated the procedure very well. There was satisfactory reduction of the fracture and a sugar-tong splint was applied. She was neurovascularly intact after the procedure and recovered well from sedation. Additional Percocet was given prior to discharge. See discharge instructions for further discussion. Dr. Iverson was notified of the injury and intent to follow-up. Departure Impression Primary Impression: Left radial fracture Qualified Codes: S52.552A - Other extraarticular fracture of lower end of left radius, initial encounter for closed fracture Additional Impression: Fall on stairs Qualified Codes: W10.9XXA - Fall (on) (from) unspecified stairs and steps, i nitial encounter Disposition: HOME, SELF-CARE Condition: Improved Departure-Patient Inst. Decision time for Depature: 04:54 Referrals: REINALDO GUY MD (PCP/Family) Primary Care Physician Patient Instructions: Caring for your splint, Radius Fracture (DC) Add. Discharge Instructions: Keep your splint clean and dry. You may rest it on a soft surface such as a pillow. You may apply ice in 20-minute intervals to help reduce pain and swelling. Elevating the arm on a soft surface may also help reduce pain and swelling. Use your hydrocodone this evening to help control pain. You may use 1 to 2 tablets every 4 hours as needed. Then you may change to the Percocet prescribed after you you have it filled. Follow-up with Dr. Iverson soon as possible. Please call on Friday morning to schedule an appointment. Return to the ER if you have any worsening of symptoms despite following these instructions. All discharge instructions reviewed with patient and/or family. Voiced understanding. Scripts Oxycodone HCl/Acetaminophen (Percocet 5-325 mg Tablet) 1 Each Tablet 1 TAB PO Q4H PRN for PAIN-MODERATE TO SEVERE MDD 6 TABS, #20 TAB Prov: JOANN MOURA MD 12/29/22 Copy Copies To 1: REINALDO GUY MD Copies To 2: CHARLA IVERSON MD, JOSHUA T MD Dec 29, 2022 04:58
[2022-12-29 07:11] VITALS: BP 135/76
--- NOTE | 2022-12-29 09:02 | Diagnostic Imaging Report ---
EXAMINATION: Left wrist, two views. HISTORY: Post reduction. COMPARISON: 12/29/2022. FINDINGS: There has been partial reduction and splinting of left distal radial fracture. Alignment is significantly improved. Ulnar styloid process fracture is unchanged. No new fracture is seen. Cortical thickening and irregularity of the proximal left radius and ulna is partially imaged and likely related to prior surgery. IMPRESSION: 1. Significantly improved alignment of left distal radial fracture status post closed reduction and splinting. 2. Unchanged ulnar styloid process fracture. Dictated by: Dictated on workstation # [id number]
--- NOTE | 2022-12-29 09:03 | Diagnostic Imaging Report ---
EXAMINATION: Left wrist, 3 or more views. HISTORY: Wrist pain. COMPARISON: None available. FINDINGS: There is a posteriorly displaced and angulated comminuted displaced distal radial fracture. There is a displaced ulnar styloid process fracture. Cortical thickening and irregularity of the proximal left radius and ulna is likely related to prior surgery. IMPRESSION: 1. Displaced, angulated, and comminuted left distal radial fracture. 2. Ulnar styloid process fracture. Dictated by: Dictated on workstation # [id number]
== END 2022-12-29 05:35 | disposition home or self-care (01) ==
LOC: EDUNIT# 01:34 → ER 01:38
DX: S52.592A Other fractures of lower end of left radius, initial encounter for closed fracture (principal); F41.9 Anxiety disorder, unspecified; R11.0 Nausea; Z79.899 Other long term (current) drug therapy; W10.9XXA Fall (on) (from) unspecified stairs and steps, initial encounter
CPT/HCPCS: 25605; 73100; 73110; 93041; 96374; 96375